=== PATIENT | female | born 1995 | race Caucasian/White ===

== ENCOUNTER 2023-01-27 16:18 | Emergency (ER) | payer SELFPAY ==
[~2023-01-27] VITALS: Ht 162.6 cm; Wt 61.2 kg
[2023-01-27 16:21] VITALS: BP 108/65; PULSE 100; RESP 17; TEMP 97.6; O2SAT 98
[2023-01-27 17:16] LABS: AMPHETAMINE, URINE POSITIVE ng/ml (NEG <=1000); BARBITURATE, URINE NEGATIVE ng/ml (NEG <=200); BENZODIAZEPINE, URINE POSITIVE ng/mL (NEG <=200); CANNABINOID, URINE NEGATIVE ng/mL (NEG <=50); COCAINE, URINE POSITIVE ng/mL (NEG <=300); OPIATE, URINE NEGATIVE ng/mL (NEG <=2000); PHENCYCLIDINE SCREEN,URINE NEGATIVE ng/mL (NEG <=25)
[2023-01-27] MEDS ORDERED: MUPI2CRE22 TP ×2 (17:18→17:20)
[2023-01-27] MEDS ORDERED: DOXY-745 PO ×2 (17:18→17:20)
[2023-01-27 17:24] VITALS: BP 122/80; PULSE 95; RESP 17; O2SAT 98
== END 2023-01-27 17:25 ==
LOC: MED 16:18
DX: M79.662 Pain in left lower leg (principal); T42.4X1A Poisoning by benzodiazepines, accidental (unintentional), initial encounter; Y92.89 Other specified places as the place of occurrence of the external cause
CPT/HCPCS: 80305; 81002; 81025; 99283